=== PATIENT | female | born 1990 ===

== ENCOUNTER 2022-12-10 07:08 | Day surgery (SDC) | payer OTHER ==
[~2022-12-10] VITALS: Ht 170.2 cm; Wt 71.7 kg
[2022-12-10] MEDS ORDERED: MORGIDOX100 MG PO (14:19)
[2022-12-10] MEDS ORDERED: NAPR500T14 PO (14:19)
== END 2022-12-10 15:35 | disposition home or self-care (01) ==
LOC: CIR.AMB 07:08 → O/R 12:09 → OB/GYN 13:38 → O/R 14:31
PROVIDERS: ATTEND Obstetrics & Gynecology
DX: N93.8 Other specified abnormal uterine and vaginal bleeding (principal); D25.0 Submucous leiomyoma of uterus; N84.0 Polyp of corpus uteri; Z20.822 Contact with and (suspected) exposure to COVID-19